=== PATIENT | male | born 1990 | race Caucasian/White ===

== ENCOUNTER 2018-03-17 05:25 | Inpatient (IN) | payer SELFPAY ==
[~2018-03-17] VITALS: Ht 181.6 cm; Wt 76.7 kg
--- NOTE | 2018-03-17 05:35 | ED AMS/SEIZURE/WEAK/DIZZY ---
History of Present Illness General Chief Complaint: General Adult Stated Complaint: "BIBA PER EMS PULSE STATS CHANGE" Source: patient Exam Limitations: no limitations Vital Signs & Intake/Output Vital Signs & Intake/Output Vital Signs Date Time Temp Pulse Resp B/P B/P Pulse O2 O2 Flow FiO2 Mean Ox Delivery Rate 03/17 1537 98.4 84 18 128/80 98 Room Air 03/17 1123 96.0 88 18 116/77 96 03/17 0556 94.8 03/17 0552 Nasal 5.0L Cannula 03/17 0532 93.2 125 24 184/84 Reconcile Medications Naloxone HCl (Narcan) 4 MG/ACTUATION SPRAY 1 SPRAY IN X1 PRN OVERDOSE Triage Note: PT BIBA FROM HOME AFTER BEING FOUND UNRESPONSIVE IN FRIEND'S BACK YARD. UNKNOWN DOWN TIME. PER EMS PT'S FRIENDS WERE PERFORMING CPR ON THEIR ARRIVAL. PT RECEIVED 4MG NASAL NARCAN AND 2MG IV IN THE FIELD. PT ARRIVED GRUNTING AND THRASHING AND COMBATIVE. DR LOPEZ AT BEDSIDE Triage Nurses Notes Reviewed? yes Onset: Gradual Duration: hour(s): Timing: recent history Injury Environment: home Severity: severe Modifying Factors: Improves With: other (better w/narcan in field). Associated Symptoms: agitation HPI: 27 yo gentleman h/o heroin abuse, presents agitated and disoriented after received narcan 4mg IN and 2mg IV in the field. Per the medics, he was last seen well at 11;30pm last night. He was found at this friend's house, face down, in the back yard. His friends believed he was . CPR briefly tried by friends. 911 called. Medics arrived. Narcan 4mg IN administered, followed by 2mg iv x1. He instantly revived. HE arrives awake, but disoriented and belligerent. He is otherise well and noted (John GROSS,Deondre Prakash) Allergies Coded Allergies: No Known Allergies (03/17/18) (Shamar Harry DO) Past History Travel History Traveled to [place] past 21 day No Medical History Any Pertinent Medical History? see below for history Surgical History Surgical History: non-contributory Family History Hx Contributory? No (Deondre Lopez MD) Review of Systems Review of Systems Constitutional: Denies: see HPI. (John GROSS,Deondre Prakash) Physical Exam Physical Exam General Appearance: mild distress, moderate distress Comments: Review of Systems - except as otherwise noted in HPI Review of Systems Constitutional:no symptoms. EENTM:no symptoms. Respiratory:no symptoms. Cardiovascular:no symptoms. GI:no symptoms. Genitourinary:no symptoms. Musculoskeletal:no symptoms. Skin:no symptoms. Neurological/Psychological:no symptoms. Hematologic/Endocrine:no symptoms. Immunologic/Allergic:no symptoms. All Other Systems: Reviewed and Negative Physical Exam Physical Exam General Appearance: well developed/nourished, mild-moderate distress Head: atraumatic, normal appearance Eyes: Bilateral: normal appearance. Ears, Nose, Throat: normal pharynx, normal ENT inspection Neck: normal inspection, supple, full range of motion Respiratory: normal breath sounds, chest non-tender, no respiratory distress, quiet respiration, lungs clear Cardiovascular: regular rate/rhythm Gastrointestinal: normal bowel sounds, soft, non-tender, no organomegaly Back: normal inspection, normal range of motion Extremities: normal inspection, normal capillary refill, normal range of motion, no edema Neurologic/Psych: no motor/sensory deficits, awake, groaning, mild tremors Skin: intact, normal color, warm/dry Core Measures ACS in differential dx? No CVA/TIA Diagnosis No Sepsis Present: No Sepsis Focused Exam Completed? No (John GROSS,Deondre Prakash) Progress Differential Diagnosis: dehydration, drug intoxication, electrolyte imbalance Plan of Care: Orders Procedure Date/time Status Heart Healthy Diet 03/18 B Active Regular Diet 03/17 L Complete Admit to inpatient 03/17 1703 Active Vital Signs 03/17 1703 Active Code Status 03/17 1703 Active TROPONIN LEVEL 03/17 1627 Active EKG 03/17 1627 Active Add-on Test (ER Only) 03/17 0932 Active ED CRISIS PSYCH CONSULT 03/17 0851 Active CREATINE PHOSPHOKINASE 03/17 0646 Complete Restraint- Medical 03/17 0532 Active URINE DRUG SCREEN FOR ER ONLY 03/17 0532 Complete TROPONIN LEVEL 03/17 0532 Complete ETHANOL 03/17 0532 Complete COMPREHENSIVE METABOLIC PANEL 03/17 0532 Complete CBC WITHOUT DIFFERENTIAL 03/17 0532 Complete EKG 03/17 0532 Active Laboratory Tests 03/17/18 1657: Troponin I Pending 03/17/18 0646: Anion Gap 18 H, Estimated GFR 56 L, BUN/Creatinine Ratio 6.7 L, Glucose 131 H, Calcium 9.0, Total Bilirubin 0.3, AST 38, ALT 48, Alkaline Phosphatase 57, Creatine Kinase 521 H, Troponin I 0.58 *H, Total Protein 7.5, Albumin 4.4, Globulin 3.1, Albumin/Globulin Ratio 1.4, Serum Alcohol < 10.0 03/17/18 0540: CBC w Diff MAN DIFF ORDERED, RBC 4.80, MCV 93.2, MCH 31.0, MCHC 33.3, RDW 17.0 H, MPV 8.3, Gran % 92.2 H, Lymphocytes % 7.4 L, Monocytes % 0.3 L, Eosinophils % 0.1, Basophils % 0, Absolute Granulocytes 25.3 H, Segmented Neutrophils 77 H, Band Neutrophils 12 H, Absolute Lymphocytes 2.0, Lymphocytes 7 L, Monocytes 2, Absolute Monocytes 0.1, Absolute Eosinophils 0, Absolute Basophils 0, Metamyelocytes 2 H, Platelet Estimate ADEQUATE, Normocytic RBCs VERIFIED, Normochromic RBCs VERIFIED, Urine Opiates Screen 852.00, Methadone Screen < 40, Barbiturate Screen < 60, Ur Phencyclidine Scrn < 6.00, Amphetamines Screen < 100, U Benzodiazepines Scrn < 85, Urine Cocaine Screen > 1000 H, Urine Cannabis Screen < 5.00 Initial ED EKG: pending Hand-Off Endorsed To: Shamar Harry DO Endorsed Time: 0700 Pending: consult, EKG, labs, other (John GROSS,Deondre Prakash) Departure Departure Disposition: HOME OR SELF CARE Condition: Stable Referrals: Vahe GROSS,Aris Tsai Departure Forms: Customer Survey General Discharge Information Prescriptions: Current Visit Scripts Naloxone HCl (Narcan) 1 SPRAY IN X1 PRN OVERDOSE #1 SPRAY Ref 1 (John GROSS,Deondre Prakash) Departure Clinical Impression Primary Impression: Opioid overdose Secondary Impressions: NSTEMI (non-ST elevated myocardial infarction) Comments 03/17/18 27-year-old man status post cocaine and opiate overdose. Now he is currently awake and alert and oriented 3. He denies depression or suicidal ideation. He had a non-ST segment elevation ND. He was informed that he had a heart attack and requires admission to the hospital and he wants to sign out AMA. Crisis consultation was requested. 03/17/18 2:30 pm The patient's mother came in and despite both our efforts he refused to stay in the hospital. He was seen and evaluated by crisis. He was informed that he has a heart attack, and he has a significant risk of dying. I offered him a bed at [facility] and blood work with him to facilitate that. He denied all efforts. He signed out AMA. The risk of was explained. I told him he could return at any time, I asked [facility] intake and to follow- up with him and he was agreeable to this. 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 Admission Note Spoke With: Darren Torrez MD Documentation of Exam: Documentation of any treatments & extenuating circumstances including Concerns Regarding Discharge (functional status, medication knowledge or non-compliance, living conditions, etc.) that warrant an admission rather than observation: [The patient needs admission for serial troponins, cardiology consultation, echocardiogram] (Shamar Harry DO) Critical Care Note Critical Care Note Critical Care Time: 30-74 min (John GROSS,Deondre Prakash)
[2018-03-17] MEDS ORDERED: NARCAN4 MG IN (05:36)
[2018-03-17 06:05] LABS: ABSOLUTE BASOPHIL COUNT 0 /CUMM (0.0-0.2); ABSOLUTE EOSINOPHIL COUNT 0 /CUMM (0.0-0.7); ABSOLUTE GRANULOCYTE CT 25.3 /CUMM (1.4-6.5); ABSOLUTE MONOCYTE COUNT 0.1 /CUMM (0.10-0.60); BASOPHIL % 0 % (0.0-2.0); EOSINOPHIL % 0.1 % (0-5); GRANULOCYTE % 92.2 % (42.2-75.2); HEMATOCRIT 44.7 % (42-52); MEAN CORPUSCULAR HGB CONC 33.3 G/DL (33.0-37.0); MEAN CORPUSCULAR VOLUME 93.2 FL (80.0-94.0); MEAN PLATELET VOLUME 8.3 FL (7.4-10.4); PLATELET COUNT 392 /CUMM (130-400); WHITE BLOOD CELL COUNT 27.5 /CUMM (4.8-10.8)
--- NOTE | 2018-03-17 10:11 | ED PSYCH CRISIS CONSULTATION ---
Crisis Consult Basic Assessment Date of Consult: 03/17/18 Responsible Person/Accompanied By: mother [place] Insurance Authorization: Insurance #1: Insurance name: SELF-PAY Phone number: Policy number: Group number: Authorization number: ED Provider: Patient's ED Provider: Shamar Harry DO Primary Care Physician: Patient's PCP: Patient Has No Primary Care Dr PCP's Phone Number: Current Psychiatrist: none Chief Complaint: medical issue Patient's Quote: "I just want to get out of here !" Present Illness: Patient is a 27 year old unmarried male who is not in any current relationship, was brought in by ambulance after being found unresponsive in friend's backyard. Patient has been staying with this friend, but he is uncertain whether or not he can continue to live there. Patient was positive for coccaine and opiates. He had an M I in emergency room, and is fortunate to have survived. He admits that, since he is young and rather healthy looking, with history of any serious physical issues, that perhaps the drugs are responsible. Crisis was called specifically as the patient wants to leave the hospital AMA. Patient's overriding concern is the medical bills from this incident, and he does not want to compound this further by staying in hospital for any additional time. Patient is an only child whose parents when he was age 7. His father has recently , and it appears that they were not close. Patient reports that he has been estranged from his mother, but he would would not elaborate. Patient would gladly go to stay with his mother if she would have him there. His friend has not returned calls, so it is unclear if he can return to that situation. Patient is a high school graduate who went to [employer], and the started working in the [employer] business. He is currently unemployed. Patient reports that he started dabbling with drugs at age 23. Drug use got heavy when patient got involved with a woman who was a heroin user. The relationship broke up a few years ago, as she broke up with patient. Patient is alert and oriented x 4. Patient reports that he has never been hospitalized, and has never had any psychiatric or substance abuse treatment, and indicates that he not interested in such treatment at this time. Again, he is most concerned about cost, but also states that he is unwilling to be in hospital. When potential was discussed, patient stated matter of factly " I understand that I could . Now, can I go ?" Patient strongly denies any suicidal or homicidal ideation, and denies that the overdose was any attempt to hurt himself or to . Patient's Address: [address] [place] [address] [place] [address] Other Phone Number: Who Do You Live With? Friend Family/Informants Interviewed: cannot be obtained due to (no answer by mother, Daysi, alexandra) Allergies - Coded Allergies: No Known Allergies (03/17/18) Current Medications - Scheduled PRN Medications Naloxone HCl (Narcan) 4 MG/ACTUATION SPRAY 1 SPRAY IN X1 PRN OVERDOSE #1 SPRAY Prescribed by John GROSS,[facility] on 03/17/18 Laboratory Results: Laboratory Tests 03/17/18 0646: Anion Gap 18 H, Estimated GFR 56 L, BUN/Creatinine Ratio 6.7 L, Glucose 131 H, Calcium 9.0, Total Bilirubin 0.3, AST 38, ALT 48, Alkaline Phosphatase 57, Creatine Kinase 521 H, Troponin I 0.58 *H, Total Protein 7.5, Albumin 4.4, Globulin 3.1, Albumin/Globulin Ratio 1.4, Serum Alcohol < 10.0 03/17/18 0540: CBC w Diff MAN DIFF ORDERED, RBC 4.80, MCV 93.2, MCH 31.0, MCHC 33.3, RDW 17.0 H, MPV 8.3, Gran % 92.2 H, Lymphocytes % 7.4 L, Monocytes % 0.3 L, Eosinophils % 0.1, Basophils % 0, Absolute Granulocytes 25.3 H, Segmented Neutrophils 77 H, Band Neutrophils 12 H, Absolute Lymphocytes 2.0, Lymphocytes 7 L, Monocytes 2, Absolute Monocytes 0.1, Absolute Eosinophils 0, Absolute Basophils 0, Metamyelocytes 2 H, Platelet Estimate ADEQUATE, Normocytic RBCs VERIFIED, Normochromic RBCs VERIFIED, Urine Opiates Screen 852.00, Methadone Screen < 40, Barbiturate Screen < 60, Ur Phencyclidine Scrn < 6.00, Amphetamines Screen < 100, U Benzodiazepines Scrn < 85, Urine Cocaine Screen > 1000 H, Urine Cannabis Screen < 5.00 Past History Past Medical History Neurological: NONE EENT: NONE Cardiovascular: NONE Respiratory: NONE Gastrointestinal: NONE Hepatic: NONE Renal: NONE Musculoskeletal: NONE Psychiatric: NONE Endocrine: NONE Blood Disorders: NONE Cancer(s): NONE 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 Route of use snort Substance Abuse Treatment Substance Abuse Treatment Past Substance Abuse [place] No Comments: patient stated that he knows that he should stop using. States that he intends to do so, but will do it "on my own" Current Mental Status Mental Status Orientation: Person, Place, Situation Affect: Flat Speech: Evasive, WNL Neuro-vegetative: WNL Appearance Appearance- Dress/Hygiene: slightly disheveled Behaviors Thought Process: WNL Thought Content: WNL Memory: WNL Insight: Fair SI/HI Risk Assessment Past Suicidal Ideation/Attempts No Current Suicidal Ideation/Att No Past Homicidal Ideation/Att: No Current Homicidal Ideation/Attempts No Degree of Intent: None Risk Factors: access to lethal means, isolate/no social support, lives alone, male, limited support Lethality Ratin (mild) PTSD Checklist PTSD Done? patient declined ED Management Sitter: No Restraints: No DSM5/PS Stressors/Medical Prob Diagnosis' (DSM 5, Stressors, Medical): Coccaine use disorder, severe F 14.20 Opiate Use disorder, severe F 11.20 Current GAF: 40 Comments: Patient is fully aware of his situation and choices Patient continues to want to be discharged. He cites the cost of care. Departure Disposition Psych Medical Clearance Date: 03/17/18 Medically Cleared at: 0855 Time Started: 10 Time Ended: 949 Psychiatrist Consulted: Deloris Núñez MD Date Disposition Established: 03/17/18 Time Disposition Established: 0 Plan for Disposition - Modality: patient wants discharge, and does not wish any follow-up. Rationale for Disposition: Patient denies any S I or H I or that overdose was intentional. Patient has no psychiatric history, and does not wish any kind of treatment at this time. Additional Instructions: Patient urged to get help with substance issues. Referrals Patient Has No Primary Care Dr (PCP/Family)
--- NOTE | 2018-03-17 10:16 | RADIOLOGY REPORT ---
EXAMINATION: XR FOOT, LEFT CLINICAL INFORMATION: Left foot pain COMPARISON: None TECHNIQUE: AP and lateral views of the left foot. FINDINGS: The bones and soft tissues are normal. No fracture. Alignment is anatomic. Joint spaces are maintained. No radiopaque foreign body. IMPRESSION: No acute fracture, dislocation, or radiopaque foreign body identified.
--- NOTE | 2018-03-17 18:15 | History & Physical ---
Carlos GROSS,Samantha 03/17/181813: General Information and HPI MD Statement: I have seen and personally examined WINSTON PHILIPPE and documented this H&P. The patient is a 27 year old M who presented with a patient stated chief complaint of [NSTEMI due to cocaine]. Source of Information: patient, family, old records Exam Limitations: unable to give history History of Present Illness: Patient is a 37-year-old male was BIBA, after being found unresponsive in the friend's backyard. He does not know exactly history, but the friend who saw him unresponsive in the backyard was there at the time of history taking so we took the history from him. According to him he saw him unresponsive at around 4:00 in the morning. He was staining and saliva. he checked his carotid pulse, which were very feeble , so he called EMS/911 and started CPR. According to the ED notes during his transport he was given 4 mg of Narcan intranasally and followed by 2 mg IV. He responded to it. At the time of admission he was awake, having grunting respiration but disoriented and belligerent. He denied any suicidal or homicidal ideation. Allergies -no known drug allergies surgeries -noncontributory Family history -mother of Parkinson's disease, mother healthy Personal history -unmarried, unemployed, history of IV drug abuse -heroin since last 1 month, history of sexually transmitted infection -clamydia, smoking -to 2 pack per day, snorting cocaine, sexually active with a girlfriend and worried for getting hepatitis C. 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 Exam & Diagnostic Data Last 24 Hrs of Vital Signs/I&O Vital Signs Date Time Temp Pulse Resp B/P B/P Pulse O2 O2 Flow FiO2 Mean Ox Delivery Rate 03/17 1818 99.2 105 20 110/72 97 Room Air Room Air 03/17 1537 98.4 84 18 128/80 98 Room Air 03/17 1123 96.0 88 18 116/77 96 03/17 0556 94.8 03/17 0552 Nasal 5.0L Cannula 03/17 0532 93.2 125 24 184/84 Intake & Output 03/17 1600 03/17 0800 03/17 0000 Intake Total Output Total 700 Balance -700 Output, Urine 700 Physical Exam General Appearance Alert, Oriented X3, Cooperative, No Acute Distress Skin No Rashes, acne on face Neck Supple, No JVD Cardiovascular Normal S1, Normal S2, tachycardia Lungs Clear to Auscultation, Normal Air Movement Abdomen Soft, No Tenderness Extremities No Clubbing, No Cyanosis, No Edema, Normal Pulses Last 24 Hrs of Labs/Elvis: Laboratory Tests 03/17/18 1657: Troponin I 1.95 *H, Hepatitis A IgM Ab Pending, Hep Bs Antigen Pending, Hep B Core IgM Ab Conf Pending, Hepatitis C Antibody Pending 03/17/18 0646: Anion Gap 18 H, Estimated GFR 56 L, BUN/Creatinine Ratio 6.7 L, Glucose 131 H, Calcium 9.0, Total Bilirubin 0.3, AST 38, ALT 48, Alkaline Phosphatase 57, Creatine Kinase 521 H, Troponin I 0.58 *H, Total Protein 7.5, Albumin 4.4, Globulin 3.1, Albumin/Globulin Ratio 1.4, Serum Alcohol < 10.0 03/17/18 0540: CBC w Diff MAN DIFF ORDERED, RBC 4.80, MCV 93.2, MCH 31.0, MCHC 33.3, RDW 17.0 H, MPV 8.3, Gran % 92.2 H, Lymphocytes % 7.4 L, Monocytes % 0.3 L, Eosinophils % 0.1, Basophils % 0, Absolute Granulocytes 25.3 H, Segmented Neutrophils 77 H, Band Neutrophils 12 H, Absolute Lymphocytes 2.0, Lymphocytes 7 L, Monocytes 2, Absolute Monocytes 0.1, Absolute Eosinophils 0, Absolute Basophils 0, Metamyelocytes 2 H, Platelet Estimate ADEQUATE, Normocytic RBCs VERIFIED, Normochromic RBCs VERIFIED, Urine Opiates Screen 852.00, Methadone Screen < 40, Barbiturate Screen < 60, Ur Phencyclidine Scrn < 6.00, Amphetamines Screen < 100, U Benzodiazepines Scrn < 85, Urine Cocaine Screen > 1000 H, Urine Cannabis Screen < 5.00 Diagnostic Data EKG Results Hr 125, NSR, non specific EKF changes Other Results Foot care -No acute fracture, dislocation, or radiopaque foreign body identified. Assessment/Plan Assessment: Patient is a 37-year-old male was BIBA, after being found unresponsive in the friend's backyard. He does not know exactly history, but the friend who saw him unresponsive in the backyard was there at the time of history taking so we took the history from him. According to him he saw him unresponsive at around 4:00 in the morning. He was staining and saliva. he checked his carotid pulse, which were very feeble , so he called EMS/911 and started CPR. According to the ED notes during his transport he was given 4 mg of Narcan intranasally and followed by 2 mg IV. He responded to it. At the time of admission he was awake, having grunting respiration but disoriented and belligerent. He denied any suicidal or homicidal ideation. ED course - At the time of admission -his vitals were temperature 93.2, pulse 125, respiratory 24, blood pressure 184/84, SPO2 96% on room air. EKG did show -sinus tachycardia, heart rate [address]-T wave changes. Urinalysis showed -presence of cocaine On blood work up -troponins were positive 0.58, 1.95. WBC -27.5, hemoglobin 14.9, hematocrit 44.7, platelet count 392, granulocyte 92.2, lymphocytes 7.4, monocytes 0.3, segmented neutrophils 77, neutrophils 12, metamyelocytes 2, sodium 147, potassium 4.3, chloride 106, carbon dioxide 23, anion gap 18, BUN 10, creatinine 1.5, estimated GFR 56, glucose 131, calcium 9.0 , AST 38, ALT 48, alkaline phosphatase 57, creatinine kinase 521, troponin I 1.95, albumin 4.4. Cardiology consult was taken and advised for conservative management including aspirin and pain controlled with benzodiazepine. Assessment and plan - Cocaine-induced myocardial infarction - NSTEMI, leucocytosis * We will admit the patient to telemetry floor * Serial troponins and EKG * Follow-up cardiology consult * Pain management - Ativan 1mg Q4P * If patient Tachycardia or hypertension -Tablet clonidine 0.1 mg twice daily as needed * Discussed with ED physician and will go to [facility] after discharge. Acute kidney injury -secondary dehydration and cocaine - * We will give IV fluids -normal saline 75 cc/h, and regularly monitor BEP. CODE STATUS -full code Diet -regular diet DVT prophylaxis -JUAN FRANCISCO/heparin As Ranked By This Provider Problem List: 1. NSTEMI (non-ST elevated myocardial infarction) 2. Opioid overdose Core Measures/Misc (07/09) Acute Coronary Syndrome ACS Diagnosis: Yes Comment asa is ordered Congestive Heart Failure Congestive Heart Failure Diagnosis No Cerebrovascular Accident CVA/TIA Diagnosis: No VTE (View Protocol) VTE Risk Factors No risk factors No Mechanical VTE Prophylaxis d/t N/A MechProphylax Ordered No VTE Pharm Prophylaxis d/t NA PharmProphylax ordered Sepsis (View protocol) If YES complete Sepsis Event Note If YES complete Sepsis Event Note Darren Torrez MD 03/17/18 1830: Core Measures/Misc (07/09) Sepsis (View protocol) If YES complete Sepsis Event Note If YES complete Sepsis Event Note Attending MD Review Statement Attending Statement Attending MD Statement: examined this patient, discuss w/resident/PA/BACK HANGER, agreed w/resident/PA/BACK HANGER, reviewed EMR data (avail) Attending Assessment/Plan: 27M PMH IVDU in the past, sober for 1 month, relapsed two days ago and has been snorting cocaine and heroin for the past 2 days, found unresponsive, awoke after being given Narcan in the field by EMS. He is currently asymptomatic and feels well. He is remorseful about relapsing and wishes to obtain treatment. He did not use IV drugs in the past two days. Was found to have elevated troponin 1.58 in ER. Discussed with ER and will go to [facility] after discharge. 1. Cocaine induced myocardial infarction 2. Unresponsiveness 3. Unintentional heroin overdose Plan - Admit to telemetry - Serial troponin and EKG - Cardiology consult - Ativan PRN agitation/withdrawal - Social work consult - DVT PPx - Will go to [facility] after discharge, arranged by Dr. Harry
--- NOTE | 2018-03-17 18:35 | Admission Certification ---
Admission Certification Certification Statement - As attending physician, I certify that at the time of - admission, based on clinical presentation, severity of - symptoms, need for further diagnostic testing and - therapeutic interventions, and risk of adverse outcomes - without in-hospital treatment, in my clinical assessment, - this patient requires an acute hospital stay for a minimum - of two nights or longer. I have also considered psychsocial - factors such as support system, advanced age, financial - issues, cognitive issues, and failed out-patient treatments, - past re-admission history, safety of patient, and lack of - compliance as applicable. Specific rationale supporting this admission is: NSTEMI
--- NOTE | 2018-03-17 19:38 | Cons- Cardiology ---
General Information and HPI Consulting Request Date of Consult: 03/17/18 Requested By: Darren Torrez MD History of Present Illness: This patient is a 27 year old male with history of drug abuse but no other significant past medical history. He was found unresponsive in a friends backyard at about 4AM and was brought to the ER for evaluation. The patient has no recollection of the event at all. He was discovered to be using both heroin and cocaine. He improved somewhat after being given Narcan. At his baseline, he is active and free of any symptoms of chest discomfort, shortness of breath, lightheadedness or palptations. He is now alert and back to his baseline. The patient does have a sexually transmitted disease and has expressed concern about possible Hepatitis. The patient's ER evaluation was remarkable for an elevated cardiac troponin without any acute ischemic ECG changes. Allergies/Medications Allergies: Coded Allergies: No Known Allergies (03/17/18) Home Med List: Naloxone HCl (Narcan) 4 MG/ACTUATION SPRAY 1 SPRAY IN X1 PRN OVERDOSE Review of Systems Review of Systems: A review of systems is unremarkable for any symptoms. 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 Surgical History Surgical History: non-contributory Psychosocial History Smoking Status: Former Smoker (1/3 ppd until 2 months ago) ETOH Use: occasional use Illicit Drug Use: heroin Exam & Diagnostic Data Vital Signs and I&O Vital Signs Date Time Temp Pulse Resp B/P B/P Pulse O2 O2 Flow FiO2 Mean Ox Delivery Rate 03/17 1818 99.2 105 20 110/72 97 Room Air Room Air 03/17 1537 98.4 84 18 128/80 98 Room Air 03/17 1123 96.0 88 18 116/77 96 03/17 0556 94.8 03/17 0552 Nasal 5.0L Cannula 03/17 0532 93.2 125 24 184/84 Intake & Output 03/17 1600 03/17 0800 03/17 0000 03/16 1600 03/16 0800 03/16 0000 Intake Total Output Total 700 Balance -700 Output, Urine 700 Physical Exam: General: WD/WN male in NAD; alert and oriented x 3 HEENT: NC/AT, PERRL, EOMI Neck: no JVD, no carotid bruit Heart: Tachycardic with regular rhythm Lungs: clear bilaterally ABdomen: soft, NT, +ve bowel sounds Extremities: no edema Assessment/Plan Assessment/Plan * This patient has ruled in for a type 2 IA related to supply demand mismatch in the setting of cocaine and heroin abuse. He was found unconscious and likely had respiratory depression causing poor oxygenation along with vasoconstriction while at the same time having increased myocardial demand related to cocaine induced tachycardia. Follow cardiac enzymes until peak and monitor for any dysrhythmias while in the setting of this acute event. * The patient is likely dehydrated with increased creatinine. Would give NS. * Obtain an echocardiogram. The patient has an increased WBC count an in the setting of heroin abuse could have endocarditis. Consult Acknowledgment - Thank you for your consult request.
[2018-03-17 23:06] VITALS: BP 128/69
[2018-03-18 08:37] LABS: ABSOLUTE BASOPHIL COUNT 0 /CUMM (0.0-0.2); ABSOLUTE EOSINOPHIL COUNT 0 /CUMM (0.0-0.7); BASOPHIL % 0.3 % (0.0-2.0); MEAN CORPUSCULAR HGB 31.1 PG (27.0-31.0); MEAN CORPUSCULAR HGB CONC 34.2 G/DL (33.0-37.0); PLATELET COUNT 231 /CUMM (130-400); RBC DISTRIBUTION WIDTH 17.4 % (11.5-14.5)
[2018-03-18 08:45] LABS: ABSOLUTE GRANULOCYTE CT 8.5 /CUMM (1.4-6.5); ABSOLUTE LYMPH COUNT 1.9 /CUMM (1.2-3.4); ABSOLUTE MONOCYTE COUNT 0.4 /CUMM (0.10-0.60); EOSINOPHIL % 0 % (0-5); GRANULOCYTE % 78.2 % (42.2-75.2); MEAN CORPUSCULAR VOLUME 90.9 FL (80.0-94.0); MEAN PLATELET VOLUME 8.1 FL (7.4-10.4); RED BLOOD CELL CT 4.25 /CUMM (4.70-6.10)
[2018-03-18 08:47] LABS: HEMATOCRIT 38.7 % (42-52); WHITE BLOOD CELL COUNT 10.9 /CUMM (4.8-10.8)
[2018-03-18 09:52] VITALS: BP 118/84
--- NOTE | 2018-03-18 11:53 | PN- Att Addend ---
Attending Addendum Attending Brief Note 27M PM IVDU in the past, sober for 1 month, relapsed two days ago and has been snorting cocaine and heroin for the past 2 days, found unresponsive, awoke after being given Narcan in the field by EMS. He is currently asymptomatic and feels well. He is remorseful about relapsing and wishes to obtain treatment. He did not use IV drugs in the past two days. Was found to have elevated troponin 1.58 in ER. Discussed with ER and will go to [facility] after discharge. AFVSS NAD NCAT MMM Supple RRR CTAB Soft, NTND No c/c/e Pulses intact A&Ox3 no focal deficits 13 point ROS negative. No family cardiac history. Current Medications Sig/Ricco Start time Last Medication Dose Route Stop Time Status Admin Aspirin 81 MG DAILY 03/18 0900 AC 03/18 PO 08 Aspirin 0 .STK-MED ONE 03/18 0820 DC PO Enoxaparin Sodium 0 .STK-MED ONE 03/18 0820 DC SC Enoxaparin Sodium 40 MG DAILY 03/17 1839 AC SC Lorazepam 1 MG Q4-PRN PRN 03/17 1900 AC PO Sodium Chloride 1,000 ML Q13H 03/17 1900 AC 03/18 IV 0818 Laboratory Tests 03/18 03/18 03/17 0808 0400 2208 Chemistry Sodium (137 - 145 mmol/L) 141 Potassium (3.5 - 5.1 mmol/L) 4.1 Chloride (98 - 107 mmol/L) 106 Carbon Dioxide (22 - 30 mmol/L) 28 Anion Gap (5 - 16) 7 BUN (9 - 20 mg/dL) 9 Creatinine (0.7 - 1.2 mg/dL) 0.8 Estimated GFR (>60 ml/min) > 60 BUN/Creatinine Ratio (7 - 25 %) 11.3 Troponin I (<0.11 ng/ml) Cancelled 1.69 *H Hematology CBC w Diff NO MAN DIFF REQ WBC (4.8 - 10.8 /CUMM) 10.9 H RBC (4.70 - 6.10 /CUMM) 4.25 L Hgb (14.0 - 18.0 G/DL) 13.2 L Hct (42 - 52 %) 38.7 L MCV (80.0 - 94.0 FL) 90.9 MCH (27.0 - 31.0 PG) 31.1 H MCHC (33.0 - 37.0 G/DL) 34.2 RDW (11.5 - 14.5 %) 17.4 H Plt Count (130 - 400 /CUMM) 231 MPV (7.4 - 10.4 FL) 8.1 Gran % (42.2 - 75.2 %) 78.2 H Lymphocytes % (20.5 - 51.1 %) 17.6 L Monocytes % (1.7 - 9.3 %) 3.9 Eosinophils % (0 - 5 %) 0 Basophils % (0.0 - 2.0 %) 0.3 Absolute Granulocytes (1.4 - 6.5 /CUMM) 8.5 H Absolute Lymphocytes (1.2 - 3.4 /CUMM) 1.9 Absolute Monocytes (0.10 - 0.60 /CUMM) 0.4 Absolute Eosinophils (0.0 - 0.7 /CUMM) 0 Absolute Basophils (0.0 - 0.2 /CUMM) 0 03/17 1657 Chemistry Troponin I (<0.11 ng/ml) 1.95 *H Serology Hepatitis A IgM Ab (NONREACTIVE) NONREACTIVE Hep Bs Antigen (NONREACTIVE) NONREACTIVE Hep B Core IgM Ab Conf (NONREACTIVE) NONREACTIVE Hepatitis C Antibody (NONREACTIVE) REACTIVE H Vital Signs Date Time Temp Pulse Resp B/P B/P Pulse O2 O2 Flow FiO2 Mean Ox Delivery Rate 03/18 0952 98.2 92 15 118/84 95 Room Air 03/18 0803 98.8 87 18 112/71 95 Room Air 03/18 0555 98.7 88 18 115/72 94 Room Air 03/17 2306 99.2 95 18 128/69 95 Room Air 03/17 2306 99.2 95 18 128/69 95 Room Air 03/17 1954 99.5 107 18 108/62 96 Room Air 03/17 1818 99.2 105 20 110/72 97 Room Air Room Air 03/17 1537 98.4 84 18 128/80 98 Room Air Intake & Output 03/18 1600 03/18 0800 03/18 0000 Intake Total 1000 Output Total Balance 1000 Intake, IV 1000 Patient 70.307 kg 70.307 kg Weight Weight Reported by Patient Measurement Method 1. Cocaine induced myocardial infarction 2. Unresponsiveness 3. Unintentional heroin overdose Plan - Admit to telemetry - Serial troponin and EKG - Cardiology consult - Echocardiogram - Ativan PRN agitation/withdrawal - Social work consult - DVT PPx - Will go to [facility] after discharge, arranged by Dr. Harry
--- NOTE | 2018-03-18 12:47 | PN- Cardiology ---
Subjective Subjective: * No complaints. No arrhythmias. * sinus rhythm * troponin trended down * WBC is normalized Objective Vital Signs and I&Os Vital Signs Date Time Temp Pulse Resp B/P B/P Pulse O2 O2 Flow FiO2 Mean Ox Delivery Rate 03/18 0952 98.2 92 15 118/84 95 Room Air 03/18 0803 98.8 87 18 112/71 95 Room Air 03/18 0555 98.7 88 18 115/72 94 Room Air 03/17 2306 99.2 95 18 128/69 95 Room Air 03/17 2306 99.2 95 18 128/69 95 Room Air 03/17 1954 99.5 107 18 108/62 96 Room Air 03/17 1818 99.2 105 20 110/72 97 Room Air Room Air 03/17 1537 98.4 84 18 128/80 98 Room Air Intake & Output 03/18 1600 03/18 0800 03/18 0000 03/17 1600 03/17 0800 03/17 0000 Intake Total 1000 Output Total 700 Balance 1000 -700 Intake, IV 1000 Output, Urine 700 Patient 155 lb 155 lb 155 lb Weight Weight Reported by Patient Reported by Patient Measurement Method Physical Exam: General: WD/WN male in NAD; alert and oriented x 3 HEENT: NC/AT, PERRL, EOMI Neck: no JVD, no carotid bruit Heart: Tachycardic with regular rhythm Lungs: clear bilaterally ABdomen: soft, NT, +ve bowel sounds Extremities: no edema Assessment/Plan Assessment/Plan * This patient has ruled in for a type 2 MD related to supply demand mismatch in the setting of cocaine and heroin abuse. He was found unconscious and likely had respiratory depression causing poor oxygenation along with vasoconstriction while at the same time having increased myocardial demand related to cocaine induced tachycardia. * The patient was likely dehydrated with increased creatinine which has now normalized. * Obtain an echocardiogram. * Okay to go to [facility] after echo obtained. Continue telemetry? Yes
[2018-03-18 15:05] VITALS: BP 118/76
[2018-03-18 22:11] VITALS: BP 124/80
[2018-03-19 06:45] VITALS: BP 130/84
[2018-03-19 08:47] LABS: ABSOLUTE BASOPHIL COUNT 0 /CUMM (0.0-0.2); ABSOLUTE EOSINOPHIL COUNT 0 /CUMM (0.0-0.7); ABSOLUTE GRANULOCYTE CT 6.3 /CUMM (1.4-6.5); ABSOLUTE LYMPH COUNT 1.7 /CUMM (1.2-3.4); ABSOLUTE MONOCYTE COUNT 0.6 /CUMM (0.10-0.60); BASOPHIL % 0.4 % (0.0-2.0); EOSINOPHIL % 0.2 % (0-5); GRANULOCYTE % 72.9 % (42.2-75.2); HEMATOCRIT 40.2 % (42-52); MEAN CORPUSCULAR HGB 31.3 PG (27.0-31.0); MEAN CORPUSCULAR HGB CONC 34.3 G/DL (33.0-37.0); MEAN CORPUSCULAR VOLUME 91.2 FL (80.0-94.0); MEAN PLATELET VOLUME 8.4 FL (7.4-10.4); PLATELET COUNT 236 /CUMM (130-400); RBC DISTRIBUTION WIDTH 16.9 % (11.5-14.5); RED BLOOD CELL CT 4.41 /CUMM (4.70-6.10); WHITE BLOOD CELL COUNT 8.6 /CUMM (4.8-10.8)
--- NOTE | 2018-03-19 08:51 | PN- Cardiology ---
Subjective Subjective: * Resting comfortably without complaints. * sinus rhythm * No dysrhythmias Objective Vital Signs and I&Os Vital Signs Date Time Temp Pulse Resp B/P B/P Pulse O2 O2 Flow FiO2 Mean Ox Delivery Rate 03/19 0645 99.3 94 20 130/84 95 Room Air 03/18 2211 98.3 89 25 124/80 96 03/18 1505 99.0 96 20 118/76 96 Room Air 03/18 0952 98.2 92 15 118/84 95 Room Air Intake & Output 03/19 1600 03/19 0800 03/19 0000 03/18 1600 03/18 0800 03/18 0000 Intake Total 766 585 5726 1000 Output Total Balance 743 763 1081 1000 Intake, IV 525 748 752 6083 Intake, Oral 800 Patient 170 lb 155 lb 155 lb 155 lb Weight Weight Reported by Patient Reported by Patient Measurement Method Physical Exam: General: WD/WN male in NAD; alert and oriented x 3 HEENT: NC/AT, PERRL, EOMI Neck: no JVD, no carotid bruit Heart: regular rate and rhythm Lungs: clear bilaterally ABdomen: soft, NT, +ve bowel sounds Extremities: no edema Assessment/Plan Assessment/Plan * This patient has ruled in for a type 2 LA related to supply demand mismatch in the setting of cocaine and heroin abuse. He was found unconscious and likely had respiratory depression causing poor oxygenation along with vasoconstriction while at the same time having increased myocardial demand related to cocaine induced tachycardia. * The patient was likely dehydrated with increased creatinine which has now normalized. * Obtain an echocardiogram. * Okay to go to [facility] after echo obtained. Continue telemetry? Yes
--- NOTE | 2018-03-19 09:05 | PN- Housestaff ---
See Addendum Subjective Follow-up For: 1. Cocaine induced myocardial infarction 2. Unresponsiveness 3. Unintentional heroin overdose Tele-Events Since Last Visit: Multiple bradycardia episodes, this morning NSE and heartrate is in the 90s. No other overnight events were reported Subjective: Tmax 99, hemodynamically stable, saturating well on room air. The patient is laying on bed looks relaxed and comfortable and denies any current active complaints. Review of Systems Constitutional: Reports: no symptoms, see HPI. Objective Last 24 Hrs of Vital Signs/I&O Vital Signs Date Time Temp Pulse Resp B/P B/P Pulse O2 O2 Flow FiO2 Mean Ox Delivery Rate 03/19 0645 99.3 94 20 130/84 95 Room Air 03/18 2211 98.3 89 25 124/80 96 03/18 1505 99.0 96 20 118/76 96 Room Air Intake & Output 03/19 1600 03/19 0800 03/19 0000 Intake Total 525 225 Output Total Balance 525 225 Intake, IV 525 225 Patient 77.111 kg Weight Physical Exam General Appearance: Alert, Oriented X3, Cooperative, No Acute Distress Skin: No Rashes HEENT: Atraumatic, PERRLA, EOMI, Mucous Membr. moist/pink Neck: Supple, No JVD Cardiovascular: Regular Rate, Normal S1, Normal S2, No Murmurs Lungs: Clear to Auscultation, Normal Air Movement Abdomen: Soft, No Tenderness Neurological: Normal Speech Extremities: No Clubbing, No Cyanosis, No Edema Current Medications: Current Medications Sig/Ricco Start time Last Medication Dose Route Stop Time Status Admin Aspirin 81 MG DAILY 03/18 0900 AC 03/19 PO 0853 Enoxaparin Sodium 40 MG DAILY 03/17 1839 AC SC Lorazepam 1 MG Q4-PRN PRN 03/17 1900 AC PO Sodium Chloride 1,000 ML Q13H 03/17 190 AC 03/19 IV 1024 Last 24 Hrs of Lab/Elvis Results Last 24 Hrs of Labs/Mics: Laboratory Tests 03/19/18 0632: Anion Gap 12, Estimated GFR > 60, BUN/Creatinine Ratio 5.0 L, CBC w Diff NO MAN DIFF REQ, RBC 4.41 L, MCV 91.2, MCH 31.3 H, MCHC 34.3, RDW 16.9 H, MPV 8.4, Gran % 72.9, Lymphocytes % 20.0 L, Monocytes % 6.5, Eosinophils % 0.2, Basophils % 0.4, Absolute Granulocytes 6.3, Absolute Lymphocytes 1.7, Absolute Monocytes 0.6, Absolute Eosinophils 0, Absolute Basophils 0 Assessment/Plan Assessment: 72-year-old male with a history of drug abuse who was sober for 1 month but relapsed 2 days ago. For the past 2 days he was taking cocaine and her wean after which she was found unresponsive, he awake after Narcan given by EMS. During this admission he had elevated troponin up to 1.58 which most likely type II NM(demand supply mismatch) secondary to drug abuse. The patient is currently symptom free and denies any active complaints. After he is stable he will be discharged to [facility]. Echocardiogram are pending. #Elevated troponin most likely secondary to type II NM(supply demand mismatch) * Continue telemetry monitoring until echo is done in the morning. * Follow echocardiogram in the morning * Continue aspirin 81 mg daily BUCK * Resolved with IV hydration * DC IV fluid, given adequate oral intake #Cocaine and heroin use * The patient is willing to be discharged to [facility] -Regular diet -DVT prophylaxis with Lovenox -FC Problem List: 1. NSTEMI (non-ST elevated myocardial infarction) 2. Opioid overdose Pain Ratin Pain Location: na Pain Goal: Remain pain free Pain Plan: See A&P Tomorrow's Labs & Rationales: No needs for labs
[2018-03-19 14:35] VITALS: BP 128/68
[2018-03-19 22:13] VITALS: BP 124/70
--- NOTE | 2018-03-19 23:10 | Incdntl Nt Psy ---
Incidental Note Notation: Psychiatry consult placed for 27 yo M with cocaine use disorder and opiate ( heroin) use disorder presenting to ED unresponsive with elevated troponin. Narcan given and pt stabilized. Pt with likely cocaine-onduced NV. Consult placed by medicine team with question of "pt is to go to [facility]." Called team to clarify, unsure of need for psychiatry consult at this time. Medical team stated that they were unsure if pt needed to be seen my psychiatry before transfer to [facility] rehab, however case was reviewed by psychiatrist Dr Núñez on 03/17/2018 and was found to be accidental overdose, no other psychiatric hx other than substance use disorders and pt pychaitrically cleared. At this time, pt is still completing medical workup (echo tomorrow) and not ready for discharge. Medical team stated they will clarify need for further psychiatric consultation and call back if needed. SW consult placed and pt reportedly has bed available at [facility] when medically cleared.
[2018-03-20 06:57] VITALS: BP 130/88
[2018-03-20 07:48] LABS: ABSOLUTE BASOPHIL COUNT 0 /CUMM (0.0-0.2); ABSOLUTE EOSINOPHIL COUNT 0 /CUMM (0.0-0.7); ABSOLUTE GRANULOCYTE CT 3.8 /CUMM (1.4-6.5); ABSOLUTE LYMPH COUNT 1.9 /CUMM (1.2-3.4); ABSOLUTE MONOCYTE COUNT 0.5 /CUMM (0.10-0.60); BASOPHIL % 0.2 % (0.0-2.0); EOSINOPHIL % 0.5 % (0-5); GRANULOCYTE % 61.2 % (42.2-75.2); HEMATOCRIT 43.5 % (42-52); MEAN CORPUSCULAR HGB CONC 34.1 G/DL (33.0-37.0); MEAN CORPUSCULAR VOLUME 91.1 FL (80.0-94.0); MEAN PLATELET VOLUME 7.8 FL (7.4-10.4); PLATELET COUNT 258 /CUMM (130-400); RBC DISTRIBUTION WIDTH 16.7 % (11.5-14.5); RED BLOOD CELL CT 4.78 /CUMM (4.70-6.10); WHITE BLOOD CELL COUNT 6.3 /CUMM (4.8-10.8)
--- NOTE | 2018-03-20 07:53 | PN- Housestaff ---
Rupa RGOSS,[facility] 03/20/18 0753: Subjective Follow-up For: 1. Cocaine induced myocardial infarction 2. Unresponsiveness 3. Unintentional heroin overdose Tele-Events Since Last Visit: Sinus Otoniel 48-73 Subjective: Patient resting comfortably, deneis any complaints. Says he does not have any previuos Hx or has ever been tested in the past for Hep C. Review of Systems Constitutional: Reports: no symptoms. EENTM: Reports: no symptoms. Cardiovascular: Reports: no symptoms. Respiratory: Reports: no symptoms. Gastrointestinal: Reports: no symptoms. Genitourinary: Reports: no symptoms. Musculoskeletal: Reports: no symptoms. Skin: Reports: no symptoms. Neurological/Psychological: Reports: no symptoms. Hematologic/Endocrine: Reports: no symptoms. Immunologic/Allergic: Reports: no symptoms. Objective Last 24 Hrs of Vital Signs/I&O Vital Signs Date Time Temp Pulse Resp B/P B/P Pulse O2 O2 Flow FiO2 Mean Ox Delivery Rate 03/20 0657 98.0 86 12 130/88 97 Room Air 03/19 2213 98.9 82 20 124/70 97 03/19 1435 98.5 85 18 128/68 98 Room Air Intake & Output 03/20 1600 03/20 0800 03/20 0000 Intake Total Output Total Balance Patient 169 lb Weight Physical Exam General Appearance: Alert, Oriented X3, Cooperative, No Acute Distress Skin: No Rashes, No Breakdown Cardiovascular: Regular Rate, Normal S1, Normal S2 Lungs: Clear to Auscultation, Normal Air Movement Abdomen: Normal Bowel Sounds, Soft, No Tenderness Extremities: No Clubbing, No Cyanosis, No Edema Current Medications: Current Medications Sig/Ricco Start time Last Medication Dose Route Stop Time Status Admin Aspirin 81 MG DAILY 03/18 0900 AC 03/20 PO 0856 Enoxaparin Sodium 40 MG DAILY 03/17 1839 AC SC Lorazepam 1 MG Q4-PRN PRN 03/17 190 DC 03/19 PO 2252 Sodium Chloride 1,000 ML Q13H 03/17 1900 DC 03/19 IV 1024 Last 24 Hrs of Lab/Elvis Results Last 24 Hrs of Labs/Mics: Laboratory Tests 03/20/18 0650: CBC w Diff NO MAN DIFF REQ, RBC 4.78, MCV 91.1, MCH 31.0, MCHC 34.1, RDW 16.7 H , MPV 7.8, Gran % 61.2, Lymphocytes % 30.3, Monocytes % 7.8, Eosinophils % 0.5, Basophils % 0.2, Absolute Granulocytes 3.8, Absolute Lymphocytes 1.9, Absolute Monocytes 0.5, Absolute Eosinophils 0, Absolute Basophils 0 Assessment/Plan Assessment: 72-year-old male with a history of drug abuse who was sober for 1 month but relapsed 2 days ago. For the past 2 days he was taking cocaine and her wean after which she was found unresponsive, he awake after Narcan given by EMS. During this admission he had elevated troponin up to 1.58 which most likely type II CO(demand supply mismatch) secondary to drug abuse. The patient is currently symptom free and denies any active complaints. After he is stable he will be discharged to [facility]. Echocardiogram are pending. #Elevated troponin most likely secondary to type II CO(supply demand mismatch) * Continue telemetry monitoring until echo is done. * Echocardiogram pending * Discontinue aspirin 81 mg daily. * Discontinue Ativan BUCK * Resolved with IV hydration * IV fluids discontinued, given adequate oral intake #Cocaine and heroin use * Patient will be discharged to [facility]. # Hep C antibody positive; * Outpatient follow up with GI for further evaluation. -Regular diet -DVT prophylaxis with Lovenox -FC Problem List: 1. Hepatitis C antibody test positive 2. NSTEMI (non-ST elevated myocardial infarction) Pain Ratin Pain Location: NA Pain Goal: Remain pain free Pain Plan: NA Tomorrow's Labs & Rationales: None Darren Torrez MD 03/20/18 1110: Attending MD Review Statement Attending Statement Attending MD Statement: examined this patient, discuss w/resident/PA/SCHOOL TEACHER, agreed w/resident/PA/SCHOOL TEACHER, reviewed EMR data (avail) Attending Assessment/Plan: 27M PMH IVDU in the past, sober for 1 month, relapsed two days ago and has been snorting cocaine and heroin for the past 2 days, found unresponsive, awoke after being given Narcan in the field by EMS. He is currently asymptomatic and feels well. He is remorseful about relapsing and wishes to obtain treatment. He did not use IV drugs in the past two days. Was found to have elevated troponin 1.58 in ER. Discussed with ER and will go to [facility] after discharge. Doing well, no complaints, no telemetry events. 1. Cocaine induced myocardial infarction 2. Unresponsiveness 3. Unintentional heroin overdose Plan - Continue telemetry - Cardiology consult - Echocardiogram - Discontinue Ativan on discharge - Social work consult - DVT PPx - Will go to [facility] after discharge, arranged by Dr. Harry
[2018-03-20] MEDS ORDERED: ASPIRIN81 M4 PO (08:57)
--- NOTE | 2018-03-20 09:07 | Patient Discharge Instructions ---
Discharge Instructions General Discharge Information You were seen/treated for: Cocaine induced AR Watch for these problems: Please return to the ER in case of any chest pain, palpitations, or shortness of breath. Special Instructions: Please follow up with your PCP and panel wirer within a week after discharge. You have a positive Hep C antibody, please follow up with the advertising dispatch clerks supervisor for further evaluation. Diet Continue normal diet: Yes Activity Full Activity/No Limits: Yes Activity Self Limited: Yes Acute Coronary Syndrome Inclusion Criteria At DC or during hospital stay patient has or had the following: ACS DIAGNOSIS Yes Discharge Core Measures Meds if any: Prescribed or Continued at Discharge Aspirin Yes Meds if any: NOT Prescribed or Continued at Discharge Congestive Heart Failure Inclusion Criteria At DC or during hospital stay patient has or had the following: CHF DIAGNOSIS No Discharge Core Measures Meds if any: Prescribed or Continued at Discharge Meds if any: NOT Prescribed or Continued at Discharge Cerebrovascular accident Inclusion Criteria At DC or during hospital stay patient has or had the following: CVA/TIA Diagnosis No Discharge Core Measures Meds if any: Prescribed or Continued at Discharge Meds if any: NOT Prescribed or Continued at Discharge Venous thromboembolism Inclusion Criteria VTE Diagnosis No VTE Type NONE VTE Confirmed by (Test) NONE Discharge Core Measures - Per Current guidelines, there needs to be overlap - treatment for the first 5 days of Warfarin therapy. - If discharged on Warfarin prior to 5 days of - overlap therapy, the patient will need to be - assessed for post discharge needs including - *Post discharge parental anticoagulation - *Warfarin and/or parental anticoagulation education - *Follow up date to check INR post discharge At least 5 days overlap therapy as Inpatient No Meds if any: Prescribed or Continued at Discharge Note: Overlap Therapy is Warfarin and Anticoagulant Meds if any: NOT Prescribed or Continued at Discharge
--- NOTE | 2018-03-20 10:46 | Discharge Summary ---
Visit Information Visit Dates Admission Date: 03/17/18 Discharge Date: 03/20/18 Hospital Course Course Attending Physician: Darren Torrez MD Primary Care Physician: Patient Has No Primary Care Dr Hospital Course: 72-year-old male with a history of drug abuse who was sober for 1 month but relapsed 2 days ago. For the past 2 days he was taking cocaine and her wean after which she was found unresponsive, he awake after Narcan given by EMS. During this admission he had elevated troponin up to 1.58 which most likely type II FL(demand supply mismatch) secondary to drug abuse. The patient is currently symptom free and denies any active complaints. After he is stable he will be discharged to [facility]. Echocardiogram pending. #Elevated troponin most likely secondary to type II FL(supply demand mismatch) * Continue telemetry monitoring until echo is done in the morning. * Follow echocardiogram in the morning * Continue aspirin 81 mg daily BUCK * Resolved with IV hydration * DC IV fluid, given adequate oral intake #Cocaine and heroin use * The patient is willing to be discharged to [facility] -Regular diet -DVT prophylaxis with Lovenox -FC Allergies: Coded Allergies: No Known Allergies (03/17/18) Significant Procedures: XRY-FOOT TWO VIEWS, LEFT FINDINGS: The bones and soft tissues are normal. No fracture. Alignment is anatomic. Joint spaces are maintained. No radiopaque foreign body. IMPRESSION: No acute fracture, dislocation, or radiopaque foreign body identified. Disposition Summary Disposition Principal Diagnosis: Cocaine induced FL Additional Diagnosis: Unresponsiveness Unintentional heroin overdose Discharge Disposition: home or self care Discharge Instructions General Discharge Information Code Status: Full Code Patient's Diet: Regular Patient's Activity: As tolerated Follow-Up Instructions/Appts: Please follow-up with your PCP and freight brake operator within a week after discharge. You have a positive Hepatitis C antibody, please follow up with the stockroom coordinator for further evaluation. Medications at Discharge Discharge Medications: Start taking the following new medications: Naloxone HCl (Narcan) 4 MG/ACTUATION SPRAY 1 [place] IN VITRO X1 as needed for OVERDOSE Qty = 1 Refills = 1 Comments: Last Taken: NOT GIVEN IN HOSPITAL Time: Copies To: Krystle GROSS,Eris Otto MD PHD,Sukumar Corbin
--- NOTE | 2018-03-20 13:30 | Event Note ---
Event Note Event Note: Spoke with Dr. Otto regarding discharging the patient as echo is still pending, said he will review the echocardiogram later and the patient is okay to be discharged.
--- NOTE | 2018-03-20 14:12 | ECHOCARDIOGRAM REPORT ---
WINSTON PHILIPPE Age: 27 : 1990 Gender: M Exam Date: 03/19/2018 21:14 Exam Location: [address] Ht (in): 71 Wt (lb): 170 BSA: 1.97 BP: 130 / 84 Ordering Physician: Robert Guerin MD Referring Physician: Robert Guerin MD Technologist: Jef Cochran [facility] Room Number: 189-01 Indications: MYOCARDIAL ISCHEMIA/WV Rhythm: Sinus Technical Quality: good FINDINGS Left Ventricle Normal left ventricular size, wall thickness and systolic function with no obvious regional wall motion abnormalities. Normal left ventricular diastolic filling pattern for age. The ejection fraction is visually estimated at 70%. Right Ventricle The right ventricle is normal in size and function. Right Atrium The right atrium is normal in size. Left Atrium The left atrium is normal in size. The interatrial septum is intact. Mitral Valve The mitral valve is normal in structure and function. There is no mitral regurgitation. Aortic Valve Structurally normal aortic valve without significant sclerosis or stenosis. There is no aortic regurgitation. Tricuspid Valve The tricuspid valve is normal in structure and function. There is no tricuspid regurgitation. Pulmonic Valve Structurally normal pulmonic valve. There is no pulmonic regurgitation. Pericardium Normal pericardium without effusion. No pleural effusion. Great Vessels Normal aortic root dimension. The aortic arch and great vessels are well seen and are normal. CONCLUSIONS 1. Normal EF of 70%. 2. No significant valvular heart disease. Sukumar Otto M.D. (Electronically Signed) Final Date: 20 Mar 2018 14:11 MEASUREMENTS (Male / Female) Normal Values 2D ECHO LV Diastolic Diameter PLAX 5.1 cm 4.2 - 5.9 / 3.9 - 5.3 cm LV Systolic Diameter PLAX 3.0 cm 2.1 - 4.0 cm LV Fractional Shortening PLAX 41.2 % 25 - 46 % LV Ejection Fraction 2D Teich 71.7 % IVS Diastolic Thickness 1.2 cm LVPW Diastolic Thickness 1.2 cm LV Relative Wall Thickness 0.5 RV Internal Dim ED PLAX 3.2 cm 1.9 - 3.8 cm LVOT Diameter 2.6 cm Aortic Root Diameter 3.9 cm LA Systolic Diameter LX 3.0 cm 3.0 - 4.0 / 2.7 - 3.8 cm LA Volume 40.0 cm 18 - 58 / 22 - 52 cm Ascending Aorta Diameter 2.9 cm DOPPLER AV Peak Velocity 115.0 cm/s AV Peak Gradient 5.3 mmHg AV Mean Velocity 87.2 cm/s AV Mean Gradient 3.0 mmHg AV Velocity Time Integral 17.8 cm LVOT Peak Velocity 83.2 cm/s LVOT Peak Gradient 2.8 mmHg LVOT Mean Velocity 59.9 cm/s LVOT Mean Gradient 2.0 mmHg LVOT Velocity Time Integral 14.1 cm LVOT Stroke Volume 74.9 cm AV Area Cont Eq vti 4.2 cm AV Area Cont Eq pk 3.8 cm MV Peak Velocity 94.8 cm/s MV Peak Gradient 3.6 mmHg MV Mean Velocity 53.7 cm/s MV Mean Gradient 1.0 mmHg Mitral E Point Velocity 50.6 cm/s Mitral A Point Velocity 47.1 cm/s Mitral E to A Ratio 1.1 MV PHT Velocity 60.5 cm/s MV Deceleration [place] 277.0 cm/s MV Pressure Half Time 65.5 ms MV Area PHT 3.4 cm MV Deceleration Time 208.0 ms TV Peak Velocity 180.5 cm/s TV Peak E Velocity 61.0 cm/s TV Peak A Velocity 47.3 cm/s TV E to A Ratio 1.3 Right Atrial Pressure 5.0 mmHg PV Peak Velocity 80.0 cm/s PV Peak Gradient 2.6 mmHg PV Mean Velocity 54.5 cm/s PV Mean Gradient 1.0 mmHg PV Velocity Time Integral 11.3 cm LV E' Lateral Velocity 11.1 cm/s Mitral E to LV E' Lateral Ratio 4.6 LV E' Septal Velocity 7.3 cm/s Mitral E to LV E' Septal Ratio 6.9
--- NOTE | 2018-03-20 20:42 | PN- Cardiology ---
Subjective Subjective: * No complaints. * Normal echo with normal EF. * sinus rhythm Objective Vital Signs and I&Os Vital Signs Date Time Temp Pulse Resp B/P B/P Pulse O2 O2 Flow FiO2 Mean Ox Delivery Rate 03/20 0657 98.0 86 12 130/88 97 Room Air 03/19 2213 98.9 82 20 124/70 97 Intake & Output 03/20 1600 03/20 0800 03/20 0000 03/19 1600 03/19 0800 03/19 0000 Intake Total 800 525 225 Output Total Balance 800 525 225 Intake, IV 300 525 225 Intake, Oral 500 Number 1 Bowel Movements Patient 169 lb 170 lb Weight Physical Exam: General: WD/WN male in NAD; alert and oriented x 3 HEENT: NC/AT, PERRL, EOMI Neck: no JVD, no carotid bruit Heart: regular rate and rhythm Lungs: clear bilaterally ABdomen: soft, NT, +ve bowel sounds Extremities: no edema Assessment/Plan Assessment/Plan * This patient has ruled in for a type 2 MO related to supply demand mismatch in the setting of cocaine and heroin abuse. He was found unconscious and likely had respiratory depression causing poor oxygenation along with vasoconstriction while at the same time having increased myocardial demand related to cocaine induced tachycardia. * The patient was likely dehydrated with increased creatinine which has now normalized. * Normal echocardiogram. * Okay to go to [facility]. Continue telemetry? No
== END 2018-03-20 15:15 | DRG 917 ==
LOC: ERH 05:25 → ERHI 17:03 → 1NO 17:03 → ENRESERV 03-18 09:04 → ENTRNSPT 03-18 09:20 → EDTRNSPTSTS 03-18 09:27 → EDTRNSPT 03-18 09:27 → 1NO 03-18 09:47 → CMPTRNSPT 03-18 09:56 → ENPENDDIS 03-20 13:28 → 1NO 03-20 15:15
PROVIDERS: Internal Medicine; Pediatrics; Preventive Medicine Public Health & General Preventive Medicine
DX: T40.5X1A Poisoning by cocaine, accidental (unintentional), initial encounter (principal); I21.A1 Myocardial infarction type 2; N17.9 Acute kidney failure, unspecified; T40.1X1A Poisoning by heroin, accidental (unintentional), initial encounter; F17.210 Nicotine dependence, cigarettes, uncomplicated; E86.0 Dehydration; Y92.009 Unspecified place in unspecified non-institutional (private) residence as the place of occurrence of the external cause
CPT/HCPCS: 1NSP; ERO; 36415; 36592; 73620-LT; 80307; 82436; 93005; 93010; 93306; 99291; G0463; G0480; J1650; J3490